=== PATIENT | female | born 1995 | race Caucasian/White ===

== ENCOUNTER 2016-10-08 13:10 | Emergency (ER) | payer SELFPAY ==
[~2016-10-08] VITALS: Ht 165.1 cm; Wt 95.7 kg
[2016-10-08 13:16] VITALS: BP 113/69
--- NOTE | 2016-10-08 14:27 | ED GENERAL ADULT ---
History of Present Illness General Chief Complaint: General Adult Stated Complaint: "NEEDS PROOF OF FOR STATE INSURANCE" Source: patient Exam Limitations: no limitations Vital Signs & Intake/Output Vital Signs & Intake/Output Vital Signs Date Time Temp Pulse Resp B/P B/P Pulse O2 O2 Flow FiO2 Mean Ox Delivery Rate 10/08 1316 97.2 73 20 113/69 98 Room Air ED Intake and Output 10/09 0000 10/08 1200 Intake Total 0 Output Total Balance 0 Intake, Oral 0 Patient 211 lb Weight Weight Standing Scale Measurement Method Allergies Coded Allergies: No Known Allergies (10/08/16) Triage Note: PT STATES SHE NEEDS PROOF OF TO GET FOOD STAMPS AND WICK. STATES LMP 08/30/16 Triage Nurses Notes Reviewed? yes Onset: Abrupt Duration: week(s): No Modifying Factors: none LMP (ages 10-50): >5 weeks ago : Yes Patient currently breastfeeds: No HPI: 18-year-old female presents to emergency department requesting proof of . She took 2 home tests which were both positive. Last menstrual period was over 5 weeks ago. She does not have an established CLINICAL QUALITY ASSURANCE SPECIALIST. She denies any headache, chest pain, dyspnea, abdominal pain, cramping, nausea, vomiting. (SHAR GARG PA-C) Past History Travel History Traveled to [place] past 21 day No Medical History Any Pertinent Medical History? see below for history Respiratory: asthma Surgical History Surgical History: non-contributory Psychosocial History What is your primary language Mauritanian Tobacco Use: Quit >30 days ago ETOH Use: denies use Illicit Drug Use: denies illicit drug use Family History Hx Contributory? No (SHAR GARG PA-C) Review of Systems Review of Systems Constitutional: Reports: no symptoms. EENTM: Reports: no symptoms. Respiratory: Reports: no symptoms. Cardiovascular: Reports: no symptoms. GI: Reports: see HPI. Genitourinary: Reports: no symptoms. Musculoskeletal: Reports: no symptoms. Skin: Reports: no symptoms. Neurological/Psychological: Reports: no symptoms. Hematologic/Endocrine: Reports: no symptoms. Immunologic/Allergic: Reports: no symptoms. All Other Systems: Reviewed and Negative (SHAR GARG PA-C) Physical Exam Physical Exam General Appearance: well developed/nourished, no apparent distress, alert, awake Head: atraumatic, normal appearance Eyes: Bilateral: normal appearance, EOMI. Ears, Nose, Throat: hearing grossly normal Neck: normal inspection, supple, full range of motion Respiratory: no respiratory distress Gastrointestinal: normal bowel sounds, soft, non-tender Back: normal inspection, normal range of motion Extremities: normal inspection, normal range of motion Neurologic/Psych: awake, alert, oriented x 3 Skin: intact, normal color, warm/dry Core Measures ACS in differential dx? No CVA/TIA Diagnosis: No Severe Sepsis Present: No Septic Shock Present: No (SHAR GARG PA-C) Progress Differential Diagnoses I considered the following diagnoses in my evaluation of the patient: [missed , threatened , , UTI] Plan of Care: Orders Procedure Date/time Status URINE 10/08 1340 Complete URINALYSIS 10/08 1340 Complete Laboratory Tests 10/08/16 1346: Urine Color YEL, Urine Clarity HAZY H, Urine pH 6.5, Ur Specific Garretson 1.025, Urine Protein 30 H, Urine Ketones 15 H, Urine Nitrite NEG, Urine Bilirubin NEG @ICTO, Urine Urobilinogen 2.0 H, Ur Leukocyte Esterase NEG, Ur Microscopic SEDIMENT EXAMINED, Urine RBC 1-3, Urine WBC RARE, Ur Epithelial Cells MOD H, Urine Bacteria FEW H, Urine Mucus MOD H, Urine Hemoglobin NEG, Urine Glucose NEG, Urine Test POSITIVE test is positive. Results conveyed to patient. Patient is not complaining of any current symptoms and is well-appearing. Patient was given an options of local CLINICAL QUALITY ASSURANCE SPECIALIST for referral. She was instructed to call as soon as possible to set up care with one of the CLINICAL QUALITY ASSURANCE SPECIALIST referrals. She understands that she will need care during her . She was Told to follow up here if she had any concerns or symptoms. The patient is in agreement with the plan of care. (SHAR GARG PA-C) Initial ED EKG: none (SHAR GARG PA-C) Departure Departure Disposition: HOME OR SELF CARE Condition: Stable Clinical Impression Primary Impression: Positive urine test Secondary Impressions: Referrals: CHERYL GONZALEZ MD PATIENT HAS NO PRIMARY CARE DR (PCP/Family) VICKEY FIGUEROA,ROBERTO GUERRERO MD,RICHELLE Khan Additional Instructions: Your test here in the ER is positive. Follow-up with your CLINICAL QUALITY ASSURANCE SPECIALIST for further care, call to make an appointment for this week. Your CLINICAL QUALITY ASSURANCE SPECIALIST will need to fill out further documentation to confirm her . Call list of OB/GYNs given to you to establish care with one of them. Return with any concerns or new symptoms. Departure Forms: Customer Survey General Discharge Information (SHAR GARG PA-C) PA/NEWSPAPER JOURNALIST Co-Sign Statement Statement: ED Attending supervision documentation- x I saw and evaluated the patient. I have also reviewed all the pertinent lab results and diagnostic results. I agree with the findings and the plan of care as documented in the PA's/NEWSPAPER JOURNALIST's documentation. [] I have reviewed the ED Record and agree with the PA's/NEWSPAPER JOURNALIST's documentation. [] Additions or exceptions (if any) to the PAs/NEWSPAPER JOURNALIST's note and plan are summarized below: [] (DEYA FIGUEROA,BHANU) Critical Care Note Critical Care Note Critical Care Time: non-applicable (SHAR GARG PA-C)
== END 2016-10-08 14:49 ==
LOC: ERH 13:10
DX: Z32.01 Encounter for pregnancy test, result positive (principal)
CPT/HCPCS: 81001; 81025